=== PATIENT | female | born 1950 | race Caucasian/White ===

== ENCOUNTER 2017-05-10 11:38 | Observation (INO) | payer BC ==
[2017-05-10 13:13] LABS: Urine Bacteria Absent (Absent); Urine Bilirubin Negative (Negative); Urine Glucose Negative (Negative); Urine Nitrite Negative (Negative)
[2017-05-10 13:14] LABS: Hematocrit 36 % (35-47); Hemoglobin 12.2 g/dl (12.0-16.0); Mean Corpuscular HGB Conc 34 g/dl (31-36); Mean Corpuscular Hemoglobin 29 pg (27-31); Mean Corpuscular Volume 86 fL (80-97); Mean Platelet Volume 7 um3 (7.4-10.4); Red Blood Count 4.17 10^6/ul (4.0-5.4); Red Cell Distribution Width 14 % (10.5-15); White Blood Count 5.2 10^3/ul (3.5-10.8)
[2017-05-10 13:28] LABS: ALT 12 U/L (7-52); AST 14 U/L (13-39); Albumin 3.8 g/dL (3.2-5.2); Alkaline Phosphatase 77 U/L (34-104); Anion Gap 5 mmol/L (2-11); BUN/Creatinine Ratio 15.9 (8-20); Blood Urea Nitrogen 11 mg/dL (6-24); C Reactive Protein 2.58 mg/L (< 5.00); CO2 Carbon Dioxide 27 mmol/L (22-32); Calcium 9.2 mg/dL (8.6-10.3); Chloride 105 mmol/L (101-111); EGFR African American 109.1 (>60); EGFR Non-African American 84.9 (>60); Globulin 2.9 g/dL (2-4); Glucose 108 mg/dL (70-100); Potassium 3.2 mmol/L (3.5-5.0); Sodium 137 mmol/L (133-145); Total Protein 6.7 g/dL (6.4-8.9)
--- NOTE | 2017-05-10 13:42 | RAD ---
INDICATION: Headache. COMPARISON: Comparison is made with a prior MRI of the brain from November 26, 2014. TECHNIQUE: Contiguous axial sections of the brain were obtained from the skull base to the vertex without contrast. FINDINGS: The ventricles, cisterns and sulci are enlarged consistent with diffuse atrophy. There are small areas of decreased density in the subcortical and periventricular white matter suggestive of mild chronic small vessel ischemic changes. No other focal abnormality or mass effect is seen. There is no evidence for hemorrhage. No significant focal osseous abnormality is seen. The visualized portion of the paranasal sinuses and mastoid air cells appear clear. IMPRESSION: 1. NO EVIDENCE FOR ACUTE INTRACRANIAL ABNORMALITY. 2. ATROPHY AND FINDINGS SUGGESTIVE OF MILD CHRONIC SMALL VESSEL ISCHEMIC CHANGES.
[2017-05-10 14:17] LABS: Erythrocyte Sed Rate 29 mm/Hr (0-40)
[2017-05-10] MEDS ORDERED: Iohexol 350* (CONTRAST) 500 ML MDV IV ONE (15:55)
[2017-05-10] MEDS ORDERED: Potassium Chlor TAB* 20 MEQ TAB.ER PO ONE (16:43)
[2017-05-10] MEDS ORDERED: Acetaminophen TAB* 325 MG PO PRN (16:44)
[2017-05-10] MEDS ORDERED: oxyCODONE/Acetamin 5/325 MG* TAB PO PRN (16:44)
--- NOTE | 2017-05-10 16:51 | RAD ---
HISTORY: Severe headache, stroke like symptoms COMPARISONS: Head CT dated May 10, 2017 TECHNIQUE: Multiple contiguous axial CT scans were obtained of the head and neck After the administration of nonionic intravenous contrast timed to the systemic arterial phase of contrast enhancement. Coronal and sagittal multiplanar reformations are submitted for review. Multiple 3-D maximum intensity projection reconstructions are also submitted for review. FINDINGS: CTA NECK: AORTIC ARCH: There is a bovine configuration, with the left common carotid artery originating from the brachiocephalic trunk. There is no ostial or proximal stenosis of the cephalic great vessels. RIGHT VERTEBRAL ARTERY: The right vertebral artery is patent along its course, without stenosis. LEFT VERTEBRAL ARTERY: The left vertebral artery is patent along its course, without stenosis. DOMINANCE: The left vertebral artery is dominant. RIGHT COMMON CAROTID ARTERY: The right common carotid artery is patent. The right carotid bifurcation occurs at C3-C4 RIGHT INTERNAL CAROTID ARTERY: There is no right internal carotid artery stenosis by NASCET criteria. RIGHT EXTERNAL CAROTID ARTERY: The right external carotid artery is unremarkable. LEFT COMMON CAROTID ARTERY: The left common carotid artery is patent. The left carotid bifurcation occurs at C3-C4 LEFT INTERNAL CAROTID ARTERY: There is no left internal carotid artery stenosis by NASCET criteria. LEFT EXTERNAL CAROTID ARTERY: The left external carotid artery is unremarkable. VENOUS CIRCULATION: The venous system is unremarkable. SALIVARY GLANDS: The parotid glands, submandibular glands, sublingual glands are normal. NASAL CAVITY/NASOPHARYNX: The nasal cavity and nasopharynx are normal. ORAL CAVITY/OROPHARYNX: The oral cavity is obscured by streak artifact from dental amalgam. The visualized oral cavity and oropharynx are unremarkable. LARYNGEAL APPARATUS/HYPOPHARYNX: The laryngeal apparatus and hypopharynx are normal. UPPER AIRWAY/UPPER ESOPHAGUS: The visualized upper airway and esophagus are normal. LUNG APICES: The lung apices are clear. THYROID GLAND: The thyroid gland is normal. LYMPH NODES: There is no lymphadenopathy by size criteria. BONES AND SOFT TISSUES: Mild degenerative changes are noted CTA HEAD: INTRACRANIAL CIRCULATION: There is no aneurysm, vascular malformation, occlusion, or stenosis of the visualized intracranial circulation. The anterior communicating artery complex is clear. Bilateral posterior communicating arteries are identified. VENOUS CIRCULATION: The venous system is unremarkable. PERFUSION: There is no obvious parenchymal perfusion deficit. HEMORRHAGE/INFARCT: There is no hemorrhage or acute infarct. MASSES/SHIFT: There is no mass or shift. EXTRA-AXIAL SPACES: There are no extra-axial fluid collections. SULCI AND VENTRICLES: The sulci and ventricles are normal in size and position for the patient's stated age. CEREBRUM: There is mild, patchy hypoattenuation of the periventricular and subcortical white matter. BRAINSTEM: There are no focal parenchymal abnormalities. CEREBELLUM: There are no focal parenchymal abnormalities. PARANASAL SINUSES: There are mucus retention cysts of the maxillary sinuses bilaterally ORBITS: The orbits are unremarkable. BONES AND SOFT TISSUE: No bone or soft tissue abnormalities are noted. OTHER: There is no abnormal enhancement. IMPRESSION: 1. NO INTERNAL CAROTID ARTERY STENOSIS BY NASCET CRITERIA. 2. NO ANEURYSM, VASCULAR MALFORMATION, OCCLUSION, OR STENOSIS OF THE VISUALIZED INTRACRANIAL CIRCULATION.. CPT II Codes: 3100F
--- NOTE | 2017-05-10 17:05 | ED ---
Hemal Shankar Angela, scribed for Albin Marte MD on 05/10/17 at 1216 . Headache - HPI Summary HPI Summary: This pt is a 66 y/o female presenting to [facility] c/o intermittent left catholic pain x3 days, worse yesterday in the afternoon. Pt reports that her catholic pain is sharp and lasts a few minutes, it eases off and is a dull ache, sometimes subsiding completely. Her worst catholic pain was yesterday and lasted 40 minutes. Pt notes last night her left arm felt numb and achy, today it continues to feel "funny." She tried to roll over and find a more comfortable position to sleep but today her arm is still feeling numb. Pt also reports left eye discomfort, described as watery, weak, and wanting to close. She states that this headache is different from any other previous headaches and migraines. Pt denies blurry vision, visual changes, lower extremity weakness or numbness, nausea, vomiting, dizziness, chest pain, SOB, fever, chills. She notes a PMHx of fibromyalgia for which she takes Lyrica and has been helping her , although she states having breakthroughs and having muscle ache again. Pt reports a PMHx of HTN (controlled with Lisinopril), depression (Cymbalta and Paxil), and migraines (controlled by ibuprofen). She states taking quite a bit of ibuprofen for the pain. - History Of Current Complaint Chief Complaint: EDHeadache Stated Complaint: LEFT BUDDHISM PAIN, LEFT ARM PAIN Hx Obtained From: Patient Onset/Duration: Started days ago Location of Headache: Temporal - Left catholic Aggravating Factor: Nothing Allevating Factors: Nothing Associated Signs And Symptoms: Other (Noted In Comments) - Left arm numbness, left eye watery and weak - Allergies/Home Medications Allergies/Adverse Reactions: Allergies Allergy/AdvReac Type Severity Reaction Status Date / Time Ciprofloxacin [From Cipro IV] Allergy Mild Itching Verified 05/07/13 09:40 Home Medications: Home Medications DULoxetine DR MEADOWS* [Cymbalta CAP*] 30 mg PO DAILY 05/10/17 [History Confirmed ] Ezetimibe TAB* [Zetia TAB*] 10 mg PO DAILY 05/10/17 [History Confirmed 05/10/17] Famotidine TAB 40 MG(NF) [Pepcid TAB 40 MG(NF)] 40 mg PO DAILY 05/10/17 [ History Confirmed 05/10/17] Folic Acid-Vitamin B6-Vitamin [B Complex/Folic Acid] 1 tab PO DAILY 05/10/17 [ History Confirmed 05/10/17] Lisinopril/HCTZ 10/12.5(NF) [Zestoretic 10/12.5(NF)] 1 tab PO DAILY 05/10/17 [ History Confirmed 05/10/17] Paroxetine HCl [Paroxetine HCl ER] 25 mg PO DAILY 05/10/17 [History Confirmed ] Potassium Chlor TAB* [Klor Con ER TAB*] 20 meq PO DAILY 05/10/17 [History Confirmed 05/10/17] Pregabalin CAP(*) [Lyrica CAP(*)] 75 mg PO BID 05/10/17 [History Confirmed 05/10] PMH/Surg Hx/FS Hx/Imm Hx Endocrine/Hematology History: Denies: Hx Diabetes, Hx Sickle Cell Disease Cardiovascular History: Reports: Hx Hypercholesterolemia, Hx Hypertension - CONTROLLED W/ MEDS, Other Cardiovascular Problems/Disorders - PT REPORTS HAS HAD PROBLEMS WITH ARRYTHMIAS IN PAST NOT AT CURRENT TIME Denies: Hx Pacemaker/ICD Respiratory History: Denies: Hx Asthma, Other Respiratory Problems/Disorders GI History: Reports: Other GI Disorders - see above History: Denies: Hx Dialysis, Hx Renal Disease, Other Problems/Disorders Musculoskeletal History: Reports: Other Musculoskeletal History - fibromyalgia Sensory History: Reports: Hx Cataracts, Hx Contacts or Glasses - GLASSES Denies: Hx Hearing Aid Opthamlomology History: Reports: Hx Cataracts, Hx Contacts or Glasses - GLASSES Neurological History: Reports: Hx Migraine - OCCASSIONALLY Psychiatric History: Reports: Hx Depression Denies: Hx Panic Disorder - Cancer History Cancer Type, Location and Year: BREAST Hx Chemotherapy: Yes - 2009 Hx Radiation Therapy: No - Surgical History Surgery Procedure, Year, and Place: hysterectomy,exploritory with appendectomy, ruptured ovary,bilat mastectomy 2007 /2008left lymph nodes so IV in right . reconstructive breast surgery tram flap. CATARCT, TONSILECTOMY Hx Anesthesia Reactions: No Infectious Disease History: Denies: Traveled Outside the [place] in Last 30 Days - Social History Alcohol Use: None Substance Use Type: Reports: None Review of Systems Negative: Fever, Chills Positive: Other - Watery and weak left eye. Negative: Blurred Vision Negative: Chest Pain Negative: Shortness Of Breath Negative: Vomiting, Nausea Positive: Headache - left catholic pain, Numbness - Left arm All Other Systems Reviewed And Are Negative: Yes Physical Exam Triage Information Reviewed: Yes Vital Signs On Initial Exam: Initial Vitals Temp Pulse Resp BP Pulse Ox 97.9 F 81 20 156/84 99 05/10/17 11:40 05/10/17 11:40 05/10/17 11:40 05/10/17 11:40 05/10/17 11:40 Vital Signs Reviewed: Yes Appearance: Positive: Well-Appearing Skin: Positive: Warm, Skin Color Reflects Adequate Perfusion, Dry Head/Face: Positive: Normal Head/Face Inspection, Other - Nontender in catholic. No trigger points. Eyes: Positive: Normal Neck: Positive: Supple, Nontender Respiratory/Lung Sounds: Positive: Clear to Auscultation, Breath Sounds Present Cardiovascular: Positive: RRR Musculoskeletal: Positive: Normal Neurological: Positive: Normal Psychiatric: Positive: Normal, Affect/Mood Appropriate - [place] Coma Scale [place] Coma Scale Comments: 15 Diagnostics - Vital Signs Vital Signs Temp Pulse Resp BP Pulse Ox 05/10/17 11:40 97.9 F 81 20 156/84 99 - Laboratory Lab Results: Lab Results 05/10/17 05/10/17 05/10/17 Range/Units 12:35 13:04 13:04 WBC 5.2 (3.5-10.8) 10^3/ul RBC 4.17 (4.0-5.4) 10^6/ul Hgb 12.2 (12.0-16.0) g/dl Hct 36 (35-47) % MCV 86 (80-97) fL MCH 29 (27-31) pg MCHC 34 (31-36) g/dl RDW 14 (10.5-15) % Plt Count 290 (150-450) 10^3/ul MPV 7 L (7.4-10.4) um3 Neut % (Auto) 53.3 (38-83) % Lymph % (Auto) 35.8 (25-47) % [place] % (Auto) 6.9 (1-9) % Eos % (Auto) 2.8 (0-6) % Baso % (Auto) 1.2 (0-2) % Absolute Neuts (auto) 2.8 (1.5-7.7) 10^3/ul Absolute Lymphs (auto) 1.9 (1.0-4.8) 10^3/ul Absolute Monos (auto) 0.4 (0-0.8) 10^3/ul Absolute Eos (auto) 0.1 (0-0.6) 10^3/ul Absolute Basos (auto) 0.1 (0-0.2) 10^3/ul Absolute Nucleated RBC 0.01 10^3/ul Nucleated RBC % 0.1 ESR 29 (0-40) mm/Hr INR (Anticoag Therapy) (0.89-1.11) Sodium 137 (133-145) mmol/L Potassium 3.2 L (3.5-5.0) mmol/L Chloride 105 (101-111) mmol/L Carbon Dioxide 27 (22-32) mmol/L Anion Gap 5 (2-11) mmol/L BUN 11 (6-24) mg/dL Creatinine 0.69 (0.51-0.95) mg/dL Est GFR ( Amer) 109.1 (>60) Est GFR (Non-Af Amer) 84.9 (>60) BUN/Creatinine Ratio 15.9 (8-20) Glucose 108 H (70-100) mg/dL Lactic Acid (0.5-2.0) mmol/L Calcium 9.2 (8.6-10.3) mg/dL Total Bilirubin 0.70 (0.2-1.0) mg/dL AST 14 (13-39) U/L ALT 12 (7-52) U/L Alkaline Phosphatase 77 (34-104) U/L C-Reactive Protein 2.58 (< 5.00) mg/L Total Protein 6.7 (6.4-8.9) g/dL Albumin 3.8 (3.2-5.2) g/dL Globulin 2.9 (2-4) g/dL Albumin/Globulin Ratio 1.3 (1-3) Triglycerides Pending Cholesterol Pending LDL Cholesterol Pending HDL Cholesterol Pending Vitamin B12 Pending Folate Pending Urine Color Straw Urine Appearance Clear Urine pH 6.0 (5-9) Ur Specific [place] 1.004 L (1.010-1.030) Urine Protein Negative (Negative) Urine Ketones Negative (Negative) Urine Blood Negative (Negative) Urine Nitrate Negative (Negative) Urine Bilirubin Negative (Negative) Urine Urobilinogen Negative (Negative) Ur Leukocyte Esterase 1+ H (Negative) Urine WBC (Auto) Trace(0-5/hpf) (Absent) Urine RBC (Auto) Trace(0-2/hpf) (Absent) Ur Squamous Epith Cells Present H (Absent) Urine Bacteria Absent (Absent) Urine Glucose Negative (Negative) 05/10/17 05/10/17 Range/Units 13:04 13:04 WBC (3.5-10.8) 10^3/ul RBC (4.0-5.4) 10^6/ul Hgb (12.0-16.0) g/dl Hct (35-47) % MCV (80-97) fL MCH (27-31) pg MCHC (31-36) g/dl RDW (10.5-15) % Plt Count (150-450) 10^3/ul MPV (7.4-10.4) um3 Neut % (Auto) (38-83) % Lymph % (Auto) (25-47) % [place] % (Auto) (1-9) % Eos % (Auto) (0-6) % Baso % (Auto) (0-2) % Absolute Neuts (auto) (1.5-7.7) 10^3/ul Absolute Lymphs (auto) (1.0-4.8) 10^3/ul Absolute Monos (auto) (0-0.8) 10^3/ul Absolute Eos (auto) (0-0.6) 10^3/ul Absolute Basos (auto) (0-0.2) 10^3/ul Absolute Nucleated RBC 10^3/ul Nucleated RBC % ESR (0-40) mm/Hr INR (Anticoag Therapy) 0.86 L (0.89-1.11) Sodium (133-145) mmol/L Potassium (3.5-5.0) mmol/L Chloride (101-111) mmol/L Carbon Dioxide (22-32) mmol/L Anion Gap (2-11) mmol/L BUN (6-24) mg/dL Creatinine (0.51-0.95) mg/dL Est GFR ( Amer) (>60) Est GFR (Non-Af Amer) (>60) BUN/Creatinine Ratio (8-20) Glucose (70-100) mg/dL Lactic Acid 0.9 (0.5-2.0) mmol/L Calcium (8.6-10.3) mg/dL Total Bilirubin (0.2-1.0) mg/dL AST (13-39) U/L ALT (7-52) U/L Alkaline Phosphatase (34-104) U/L C-Reactive Protein (< 5.00) mg/L Total Protein (6.4-8.9) g/dL Albumin (3.2-5.2) g/dL Globulin (2-4) g/dL Albumin/Globulin Ratio (1-3) Triglycerides Cholesterol LDL Cholesterol HDL Cholesterol Vitamin B12 Folate Urine Color Urine Appearance Urine pH (5-9) Ur Specific [place] (1.010-1.030) Urine Protein (Negative) Urine Ketones (Negative) Urine Blood (Negative) Urine Nitrate (Negative) Urine Bilirubin (Negative) Urine Urobilinogen (Negative) Ur Leukocyte Esterase (Negative) Urine WBC (Auto) (Absent) Urine RBC (Auto) (Absent) Ur Squamous Epith Cells (Absent) Urine Bacteria (Absent) Urine Glucose (Negative) Result Diagrams: 05/10/17 13:04 05/10/17 13:04 Lab Statement: Any lab studies that have been ordered have been reviewed, and results considered in the medical decision making process. - CT Brain CT CT Interpretation: Positive (See Comments) - IMPRESSION: 1. No evidence for acute intracranial abnormality. 2. Atrophy and findings suggestive of mild chronic small vessel ischemic changes. ED physician has reviewed this radiology report and agrees. CT Interpretation Completed By: Radiologist - EKG 12:45 Cardiac Rate: NL EKG Rhythm: Sinus Rhythm Headache Course/Dx - Course Course Of Treatment: Ms. Thao presented with a very atypical SARAVIA on and off for two days and some odd sensory symptoms in her left arm for about 15 hours. Her initial W/U was negative and she was seen by Dr. Estrada. She will be admitted to a monitored bed by the hospitalists for further W/U. - Diagnoses Provider Diagnoses: CVA (cerebral vascular accident) - Physician Notifications Discussed Care Of Patient With: Loren Estrada Time Discussed With Above Provider: 14:30 Instructed by Provider To: Other - Discussed the pt's case with Dr. Estrada. He will come see the pt in the ED. 15:25 - Spoke with hospitalist Dr. Bolton, who will admit the pt. 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 Hand: Both Correctly Best Gaze (Only Horizontal Eye Movement): Normal Visual Field Testing: No Visual Loss Facial Paresis-Pt to Smile & Close Eyes or Grimace Symmetry: Normal/Symmetrical Motor Function - Right Arm: No Drift-Holds 10 Seconds Motor Function - Left Arm: No Drift-Holds 10 Seconds Motor Function - Right Leg: No Drift-Holds 10 Seconds Motor Function - Left Leg: No Drift-Holds 10 Seconds Limb Ataxia-Must be out of Proportion to Weakness Present: Absent Sensory (Use Pinprick to Test Arms/Legs/Trunk/Face): Normal Best Language (Describe Picture, Name Items): No Aphasia Dysarthria (Read Several Words): Normal Extinction and Inattention: No Abnormality Total Score: 0 The documentation as recorded by the Hemal mendes Angela accurately reflects the service I personally performed and the decisions made by me, Albin Marte MD.
[2017-05-10 17:16] LABS: Cholesterol 198 mg/dL; HDL Cholesterol 58.5 mg/dL; LDL Cholesterol 110 mg/dL; Triglycerides 149 mg/dL
[2017-05-10] MEDS: Hydrochlorothiazide TAB* 25 MG PO SCH (17:25)
[2017-05-10] MEDS: Aspirin EC Low Dose* 81 MG TAB.EC PO SCH (17:25)
[2017-05-10 18:56] LABS: Vitamin B12 > 1450 pg/mL (180-914)
[2017-05-10] MEDS ORDERED: diPHENhydraMINE PO* 50 MG PO PRN (19:37)
--- NOTE | 2017-05-10 21:09 | CONS ---
CONSULTATION REPORT: DATE OF CONSULTATION: 05/10/17 LOCATION: Currently, in ED. REASON FOR CONSULTATION: Headache and left arm weakness/pain. HISTORY OF PRESENT ILLNESS: Ms. Thao is a very nice 66-year-old female who has a history of breast cancer status post bilateral mastectomy with reconstruction, in remission for 8 years, history of hypertension, history of hyperlipidemia, history of fibromyalgia on medication, depression, and also history of migraine headache. She has not had a migraine headache in around 10 years. She presents to the hospital today with a 2-day history of headaches over the right eye that are sharp, stabbing in nature. They come on suddenly. They last for 1 to 2 minutes and then they resolve. They are not associated with any photophobia or phonophobia, nausea or vomiting but she does state that her eye tears at times. There is no rash associated with them, no nasal discharge associated with them. Until today, she had no other neurologic symptoms with them, but they were rated 5/10. She has not taken any medications for them as they improved quickly. Today, she woke from sleep with a headache similar in nature. Also, she noted her left arm was "aching and felt like it was asleep." It involved the entire arm and it has not resolved, it has persisted. She has had off and on headache all day long and similar in nature. She denies any other weakness, numbness, tingling. She denies any vision changes other than some blurry vision. She denies any speech difficulties or swallowing difficulties. She has never had these symptoms before and she states that these headaches are different than her migraine headaches. They are, however, not the worst headache of her life. She has not had any new medications recently. She denies any head trauma, loss of consciousness. No history of seizures. She denies any insect bites. She did get chills 1 night, but no fevers. No redness over her voodoo. No pain with pressure over her voodoo. No vision loss or scotoma. There is no family history of aneurysms. PAST MEDICAL HISTORY: As noted above. PAST SURGICAL HISTORY: Appendix, tonsillectomy, bilateral mastectomy. MEDICATIONS: Her home medications include: 1. Ambien 5 daily. 2. Potassium chloride 20 mEq daily. 3. Paroxetine 25 mg daily. 4. Multivitamin. 5. Lisinopril/hydrochlorothiazide 06/28.5 one daily. 6. Gabapentin 600 mg p.o. b.i.d. 7. Folic acid 1 daily. 8. Zetia 10 mg daily. 9. Duloxetine 30 mg p.o. t.i.d. 10. B complex with folic acid 1 daily. ALLERGIES: CIPROFLOXACIN. SOCIAL HISTORY: No tobacco use. She stopped drinking alcohol several years ago , but was never a heavy drinker. 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 She is . REVIEW OF SYSTEMS: A 14 organ systems as noted above, otherwise negative. PHYSICAL EXAMINATION: Vital Signs: Blood pressure is in the 140s/80s, pulse has been normal in the 70s to 80s, respiratory rate is 12, O2 sats have been normal 95% to 100%. In general, she is a well-nourished, well-developed, pleasant female, lying in the hospital bed. Her is at the bedside. She is well dressed, well groomed. HEENT: She is normocephalic, atraumatic. Sclerae are anicteric. Mucous membranes are moist. Oropharynx is clear. Nares are patent. There is no erythema of the eyes. No tearing in the eyes. No pain with voodoo palpation bilaterally. No cords or enlarged vessels in the temples. Her oropharynx is clear. There are no lesions. Neck is supple. No thyromegaly. No carotid bruits. No meningismus. Chest: Clear to auscultation bilaterally. Cardiovascular: Regular rate and rhythm. Abdomen is soft, nontender. Extremities: No clubbing, cyanosis, or edema. Her skin is warm and dry without lesions. On neurologic exam, she is awake, alert, oriented x3. Her speech is fluent. There is no dysarthria. Repetition is intact. Recall of recent and remote events is intact. Vocabulary is intact. Her mood is concerned, affect a bit congruent. Cranial nerves II through XII; pupils are equally round and reactive to light and accommodation. Visual العلي are full. Extraocular muscles are intact. She has some central and bilateral blurry vision but nonspecific and not located in 1 eye. She has no diplopia. No nystagmus. Her facial sensation is intact. Her face is symmetric. Hearing is intact. Her palate elevates symmetrically. Tongue is midline. Shoulder shrug and sternocleidomastoid are both normal. Motor exam, she spontaneously moves all extremities antigravity. She is 5/5 throughout. Tone and bulk are both normal. DTRs are 2+ and symmetric in the upper and lower extremities at the biceps, brachioradialis, and triceps; at the patella 2+ bilaterally, at the ankles 1+ bilaterally. Downgoing Babinski's. Sensation is intact to light touch and pinprick. Vibration and proprioception except for an area over her right colvin which has decreased pinprick. She denies any loss of sensation in her arms bilaterally. She does note an aching pain in her left arm proximally and distally that is circumferential in nature. She has good pulses in her extremities and there is no discoloration of her arms. The pain is persistent but is not worse with palpation. Her [id number] and rapid alternating movements are intact without tremor. No pass pointing. No dysdiadochokinesia or dysmetria. Heel-to- colvin is normal. Gait is normal stand and stride. Romberg is negative. LABORATORY DATA/DIAGNOSTIC STUDIES: Lab work includes a CBC with diff that is essentially normal. INR 0.86. A complete metabolic profile reveals a potassium of 3.2, glucose of 108. Direct bili of 1.2, slightly elevated. Vitamin B12 on 06/28/16 was 1450. TSH on 08/30/15 was 1.03. Her last LDL cholesterol on 06/28/16 was 130. C-reactive protein today was 2.58. She had a CT of the head today, films reviewed showed no evidence of acute intracranial abnormality, atrophy and findings suggestive of mild chronic small vessel ischemic changes. ASSESSMENT AND PLAN: Ms. Thao is a 66-year-old female who has a history of migraine headaches, none in the last 10 years; history of breast cancer, in remission for 8 years, status post bilateral mastectomy, status post reconstruction. She also has a history of hypertension, hyperlipidemia, fibromyalgia. She presents to the hospital with 2-day history of sharp, stabbing headaches in the left voodoo and today woke up with the same headache and some numbness/pain in her left arm, which has persisted, CT scan negative. At this point, I am unclear as to the etiology of her symptoms. The headaches do not appear to be vasculitic in nature. Temporal arteritis would be in the differential, although she has no palpation pain and there are no cords there and her CRP is normal. We will check an ESR as well. It is unclear whether she has some autonomic features to her headaches. She did have some tearing, but currently she has no redness, no nasal discharge, no rash or erythema in her eye. My suspicion for underlying autonomic headache is low. Something like would be in the differential but unlikely. This is also not typical of her past migraine headaches, although migraines are in the differential. These are short lived and would be less likely. Aneurysm is in the differential as well but the description of her events and the episodic nature would be unusual. Given the persistent left arm finding, stroke is in the differential, although the pain is atypical. My plan is that she should be admitted for a stroke workup, also to monitor her headaches, MRI of the brain, CT angiogram of the head and neck, echocardiogram, lab work. I would not be too aggressive with her blood pressures at this point but until we have evidence of a stroke, I would not allow extreme permissive hypertension. I am going to start her on a baby aspirin for now. I am going to get an MRI of her C - spine as well to look for any evidence of nerve compression, which could cause left arm pain, although the symptoms are not in any particular radicular pattern. Vascular causes such as a deep venous thrombosis would be unlikely given the fact that she has no swelling. Her pulses are good. There is no tenderness in her arm. I would treat her headaches with NSAIDs as necessary and continue her other medications. I will continue to follow her closely and make further recommendations as necessary. Thank you for the opportunity to participate in her care. [id number]/[facility] #: [id number] ARTEMIO
--- NOTE | 2017-05-10 21:26 | RAD ---
HISTORY: Left arm pain, stroke like symptoms COMPARISONS: October 11, 2012 TECHNIQUE: The following sequences were obtained of the cervical spine: Sagittal T1- and T2-weighted images, sagittal STIR images, axial T2 and gradient echo images. FINDINGS: BRAIN AND SPINAL CORD: The visualized spinal cord is normal in caliber, position, and signal intensity. The visualized portion of the brain is unremarkable. The cerebellar tonsils are normal in position. ALIGNMENT: There is straightening of the normal cervical lordosis. The alignment is otherwise normal. VERTEBRAL BODIES: There is hemangioma of C7. There is mild anterolateral marginal osteophyte formation. There are Modic 2 reactive endplate changes at C4-C5. JOINTS: There is uncovertebral and facet hypertrophic change MUSCULATURE: There is mild fatty infiltration. INTERVERTEBRAL DISCS: There is diffuse loss of intervertebral disc height and T2 signal throughout the spine. AXIAL IMAGES: C2-C3: There is no disc herniation, spinal stenosis, or neuroforaminal narrowing. C3-C4: There is bilateral uncovertebral and facet hypertrophy. There is severe bilateral neural foraminal narrowing. There is no significant central canal stenosis. C4-C5: There is broad-based disc osteophyte complex. There is bilateral uncovertebral and facet hypertrophy. There is severe bilateral neural foraminal narrowing. There is mild narrowing of the central canal. C5-C6: There is bilateral uncovertebral and facet hypertrophy. There is severe bilateral neural foraminal narrowing. There is mild narrowing of the central canal. C6-C7: There is bilateral uncovertebral hypertrophy. There is mild bilateral neural foraminal narrowing. There is no significant central canal stenosis. C7-T1: There is no disc herniation, spinal stenosis, or neuroforaminal narrowing. SOFT TISSUES: The visualized soft tissues of the neck are unremarkable. OTHER: There are mucus retention cysts of the maxillary sinuses bilaterally. There is an air-fluid level within the sphenoid sinus. IMPRESSION: 1. DEGENERATIVE DISC DISEASE AND OSTEOARTHRITIS. 2. THERE IS MILD NARROWING OF THE CENTRAL CANAL AT C4-C5 AND C5-C6. 3. THERE IS MULTILEVEL NEURAL FORAMINAL NARROWING DESCRIBED ABOVE.
--- NOTE | 2017-05-10 21:27 | RAD ---
HISTORY: Stroke like symptoms, left temporal pain and severe headache, left arm pain COMPARISONS: None TECHNIQUE: The following sequences were obtained of the head: Sagittal T1-weighted images, axial T2-weighted images, axial FLAIR images, axial susceptibility weighted images, axial T1-weighted images. Additionally, axial diffusion-weighted images were obtained with calculated apparent diffusion coefficients. FINDINGS: HEMORRHAGE/INFARCT: There is no hemorrhage or acute infarct. MASSES/SHIFT: There is no mass or shift. EXTRA-AXIAL SPACES/MENINGES: There are no extra-axial fluid collections. SULCI AND VENTRICLES: The sulci and ventricles are normal in size and position for the patient's stated age. CEREBRUM: There are multiple scattered small foci of elevated T2/FLAIR signal within the periventricular and subcortical white matter. BRAINSTEM: There are no focal parenchymal abnormalities. CEREBELLUM: There are no focal parenchymal abnormalities. The cerebellar tonsils are normal in size and position. SELLA: The sella is normal. PINEAL: The pineal region is clear. CP ANGLE/TEMPORAL BONES: The labyrinthine structures are grossly normal. VESSELS: Normal flow-voids are noted within the visualized vertebral vasculature. DIFFUSION ABNORMALITIES: There are no diffusion abnormalities. PARANASAL SINUSES/MASTOIDS: There are mucus retention cysts of the maxillary sinuses bilaterally. There is an air-fluid level within the sphenoid sinus. ORBITS: The orbits are unremarkable. BONES AND SOFT TISSUE: No bone or soft tissue abnormalities are noted. OTHER: None IMPRESSION: 1. NO RESTRICTED DIFFUSION TO SUGGEST ACUTE INFARCT. 2. THERE ARE MULTIPLE FOCI OF ELEVATED T2/FLAIR SIGNAL WITHIN THE PERIVENTRICULAR AND SUBCORTICAL WHITE MATTER. WHILE THESE FINDINGS ARE NONSPECIFIC, THEY CAN BE SEEN IN ASSOCIATION WITH MIGRAINE HEADACHE, THE SEQUELA OF PREVIOUS INFECTION OR INFLAMMATION, AND CHRONIC SMALL VESSEL ISCHEMIA. DEMYELINATING DISEASE IS ALSO WITHIN THE DIFFERENTIAL, BUT IS CONSIDERED LESS LIKELY IN THE ABSENCE OF THE APPROPRIATE CLINICAL PRESENTATION. 3. MODERATE SINUS MUCOSAL INFLAMMATORY DISEASE, WITH AN AIR-FLUID LEVEL IN THE SPHENOID SINUS. IN THE CORRECT CLINICAL SETTING, THIS MAY REPRESENT ACUTE SINUSITIS
--- NOTE | 2017-05-10 22:16 | HP ---
CC: Dr. Velasquez; Dr. Estrada * HISTORY AND PHYSICAL: DATE OF ADMISSION: 05/10/17 PRIMARY CARE PROVIDER: Dr. Velasquez. CHIEF COMPLAINT: Headache. HISTORY OF PRESENT ILLNESS: Sanna Thao is a 66-year-old female with history of breast cancer, status post bilateral mastectomy, now in remission, who presents to the hospital with history of 2 days of left temporal headache. The patient describes the headache as left gnosticist shooting pain that is associated with pounding in the left side of the gnosticist and associated also with tearing in the left eye. She has no visual disturbances. The pain lasts several minutes and it goes away spontaneously afterwards. She has approximately 3 or 4 episodes a day for the past 2 days, one of them occurred at night. Last night she also noted that she had left arm numbness. She states that her numbness "woke her up from sleep." She also denies paresthesias but complaining of her left arm feeling "sore" to the point that she had problems typing today at work. When she came to the hospital she had another one of headache episodes that resolved. She was evaluated by Dr. Estrada from Neurology, who recommended overnight observation for possibility of stroke. PAST MEDICAL HISTORY: 1. History of breast cancer, status post bilateral mastectomies and chemotherapy. 2. History of tinnitus. 3. History of hypertension. 4. History of vitamin B deficiency. 5. Fibromyalgia. 6. Hypertension. 7. Appendectomy. 8. Hysterectomy. 9. Tonsillectomy. 10. History of back pain that resolved with a possibility of L5 root compression that resolved. HOME MEDICATIONS: Include: 1. Vitamin B6 and folic acid complex daily. 2. Multivitamin 1 tablet daily. 3. Lisinopril/hydrochlorothiazide 10/12.5 mg daily. 4. Lyrica 75 mg b.i.d. 5. Pepcid 40 mg daily. 6. Zetia 10 mg daily. 7. Potassium chloride 20 mEq daily. 8. Paroxetine 25 [address] 9[address] Dul[address] 30 mg daily. ALLERGIES: Include CIPROFLOXACIN. FAMILY HISTORY: Positive for father who developed colon cancer at the age of 70 and at the age of 76 of complications of Parkinson's. Mother at the age of 72 secondary to Alzheimer's. SOCIAL HISTORY: The patient denies any tobacco or drug use. She drinks alcohol occasionally. Her surrogate decision maker is her Bean. 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 REVIEW OF SYSTEMS: Please see history of present illness. 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 The remaining 14 systems were reviewed with the patient and were otherwise negative. PHYSICAL EXAMINATION GENERAL: The patient is a pleasant 66-year-old female, who is in no acute distress. Alert, awake, and oriented x3. VITAL SIGNS: Blood pressure 148/76, heart rate 76 and regular, respiratory rate 20, oxygen saturation 96% on room air, temperature of 98.4. HEENT: Head atraumatic, normocephalic. Eyes: Pupils equal, and reactive to light and accommodation. Oropharynx clear. Mucosa moist. NECK: Supple. No JVD. No bruits bilaterally. RESPIRATORY: Clear to auscultation bilaterally. CARDIOVASCULAR: Regular rate and rhythm. No murmur. ABDOMEN: Soft, nontender. Bowel sounds present in all 4 quadrants. EXTREMITIES: There is no edema. Pulses are +2 bilaterally. There is no clubbing or cyanosis. NEUROLOGIC: Speech clear. Cranial nerves II through XII are grossly intact. Motor strength is 5/5 bilaterally. Sensation grossly intact. [id number], no dysmetria bilaterally. Gait is normal. SKIN: On evaluation of the skin, no ecchymotic areas or rashes noted. PSYCHIATRIC: Pleasant, cooperative with evaluation, with no evidence of anxiety or depression. LABORATORY DATA/DIAGNOSTIC STUDIES: Laboratory data showed sodium of 137, potassium 3.2, chloride 105, carbon dioxide 27, BUN 11, creatinine 0.69. Liver function tests were unremarkable. Troponin is pending at the time of dictation. CBC: White blood cell count of 5.2, hemoglobin 12.2, hematocrit 36, and platelets of 190,000. ESR is 29. INR is 0.86. Urinalysis showed low specific gravity of 1.004 and trace leukocyte esterase. CT angiogram of the head showed impression: "No internal carotid artery stenosis. No aneurysm, vascular malformation, occlusion or stenosis of the visualized endocrine circulation." Patient's EKG showed normal sinus rhythm with a heart rate of 69 beats per minute with no ST changes. Brain CT, impression: "No evidence for acute intracranial abnormality. Atrophy and findings suggestive of mild chronic small vessel ischemic changes." ASSESSMENT AND PLAN: Ms. Thao is a 66-year-old female with history of hypertension and breast cancer, who presented to the hospital with headache and left arm heaviness. At this point, I do not have her troponin. She is going to be placed on overnight observation. If her troponin is negative, further workup for headache will include consultation with Neurology that is currently pending. Patient is also going to be ordered an MRI of the brain as well as transthoracic echocardiogram with bubble study to evaluate for possibility of transient ischemic attack. Patient's inflammatory markers were checked and that included ESR which was 29. Some of the other markers including DELFIN and C- reactive protein are still pending at the time of dictation. Patient is going to be placed on neuro checks and continued on aspirin. 1. In regards to the patient's hypertension, the patient is going to be continued on hydrochlorothiazide and lisinopril. 2. Fasting lipid profile is going to be obtained to evaluate for dyslipidemia. 3. For her history of fibromyalgia and depression, Cymbalta and paroxetine is going to be continued. 4. For DVT prophylaxis, the patient is going to be placed on heparin subcutaneously. 5. In regards to the patient's code status, patient is full code and her surrogate is her . TIME SPENT: Approximately 68 minutes was spent on admission of this patient, more than half of the time was spent [id number] with the patient during the interview, physical exam. [id number]/[facility] #: [id number] ARTEMIO
[2017-05-10] MEDS: Pregabalin CAP(*) 25 MG PO SCH (22:58)
[2017-05-10] MEDS: Heparin VIAL(*) 5000 UNITS/ML VIAL (FIVE THOUSAND) SUBCUT SCH (22:59)
[2017-05-10] MEDS ORDERED: PARoxetine HCL TAB* 10 MG PO SCH (23:00)
[2017-05-10] MEDS ORDERED: DULoxetine DR CAP* 60 MG CAP.DR PO SCH (23:00)
[2017-05-11] MEDS: Heparin VIAL(*) 5000 UNITS/ML VIAL (FIVE THOUSAND) SUBCUT SCH (05:29)
[2017-05-11] MEDS: Hydrochlorothiazide TAB* 25 MG PO SCH (07:40)
[2017-05-11] MEDS: Pregabalin CAP(*) 25 MG PO SCH (07:40)
[2017-05-11] MEDS: Aspirin EC Low Dose* 81 MG TAB.EC PO SCH (07:41)
[2017-05-11] MEDS ORDERED: Potassium Chlor TAB* 20 MEQ TAB.ER PO SCH (09:00)
[2017-05-11] MEDS ORDERED: DULoxetine DR CAP* 30 MG CAP.DR PO SCH (09:00)
[2017-05-11] MEDS ORDERED: Lisinopril TAB* 10 MG PO SCH (09:00)
[2017-05-11] MEDS ORDERED: Famotidine TAB* 20 MG PO SCH (09:00)
[2017-05-11] MEDS ORDERED: Ezetimibe TAB* 10 MG PO SCH (09:00)
--- NOTE | 2017-05-11 10:41 | PN ---
DATE OF PROGRESS NOTE: 05/11/2017. She is currently in room #446, bed 1. SUBJECTIVE: The patient has had no new symptoms overnight. Her left arm pain has resolved. She co ntinues to have occasional headaches on the left side, but they are improved. She has had no new sy mptoms and feels better overall OBJECTIVE: Temperature 98.1, pulse 75, respiratory rate 16, pulse ox 97 percent, blood pressure 143 /69. Her blood pressures have ranged from the systolics in the low 140s, diastolics in the 70s in t he last six hours. In general, she is a well- nourished, well-developed female in no acute distress . She is lying in her hospital bed. She is pleasant. HEENT: She is normocephalic, atraumatic. S clerae anicteric. Mucus membranes are moist. No yazidi pain. No cords. Neck: Supple. Chest: Cl ear to auscultation bilaterally. Cardiovascular: Regular rate and rhythm. Abdomen: Nontender. E xtremities: No edema. Neurologic: Awake, alert and oriented times three. Speech is fluent. Ther e is no dysarthria. Repetition is intact. Recall of recent or remote events is intact. Cranial ne rves II through XII: Visual العلي are full. Pupils are equal, round and reactive to light. Extrao cular muscles are intact. Face is symmetric. Facial sensation is intact. Tongue is midline. Palat e elevates symmetrically. She is spontaneously moving all extremities. Antigravity 5/5 throughout. No drift. Sensation is intact in light touch and pinprick throughout. [id number]-[id number] and rapid a lternating movements are intact without tremor. STUDIES PERFORMED: 1. Brain MRI showed no restricted diffusion. Multiple foci of periventricular and subcortical whit e matter. Moderate sinus mucosal inflammatory disease. No acute changes. 2. CTA of the brain showed no internal carotid artery stenosis. No aneurysm, vascular malformation , occlusion or stenosis noted. 3. Cervical spine MRI showed multilevel neural foraminal narrowing severe in nature at C3-4, C4-5, and C5-6. 4. Echocardiogram is pending. ASSESSMENT AND PLAN: Ms. Thao is a 66-year-old female with a history of migraines headaches in the past, presents to the hospital with sharp stabbing pains in the left yazidi, also developed some left arm heaviness yesterday which was persistent for hours. It has since resolved overnight. Her headaches have improved. At this point, I suspect that this is some variant of her migraine headac hes. My suspicious for any autonomic type headache is low. She had no real symptoms. Suspicion fo r aneurysm is low given her CTA findings. Suspicion for temporal arteritis is low. Normal ESR, CRP . No pain with palpation. Her arm pain has improved and is resolved. 1. No prophylactic treatment at this point for these headaches. I plan to see her back in two week s and if she continues to have them, we can discuss a prophylaxis. These are not chronic at this poi nt as she has only had several of them. 2. Left arm pain is most likely related to her significant neural foraminal narrowing on the MRI of the neck, although her pain was not specifically radicular in nature. Other considerations would b e an exacerbation of fibromyalgia. There is no evidence that this is related to underlying cerebrov ascular disease at this point. We will order some physical therapy for her as an outpatient. 3. I will see her soon as an outpatient. [id number]/[facility] #: [id number]
--- NOTE | 2017-05-11 10:56 | ECHO ---
Patient: SILVESTRE BARAJAS [facility] Rec#: [id number] : 1950 Date: 05/11/2017 Age: 66y Height: 162.6 cm / 64.0 in Weight: 74.8 kg / 164.9 lbs Sex: F BSA: 1.8 Room#: [facility] Admit Date#: 05/10/2017 Type: Inpatient Referring: Lali Bolton MD Reading: Brady Schwab DO Cardiac Nurse Specialist: Chuyita Sawyer RN RDCS CC: Shelby Velasquez MD Transthoracic Echocardiogram Indication: TIA BP: 143/69 HR: 75 Rhythm: NSR Findings History: HTN, HLD, breast cancer with bilateral mastectomy and breast reconstruction, chemotherapy, fibromyalgia Technical Comments: The study quality is fair. The study is technically limited due to poor apical windows. Completed at 0930. The study is technically limited due to patient body habitus. Left Ventricle: The left ventricular chamber size is normal. Mild concentric left ventricular hypertrophy is observed. Left ventricular systolic function is at the lower limits of normal. The estimated ejection fraction is 50-55%. There is an E to A reversal in the mitral valve flow pattern suggestive of diastolic dysfunction. Left Atrium: The left atrial chamber size is normal. Right Ventricle: The right ventricular cavity size is normal. The right ventricular global systolic function is normal. Right Atrium: The right atrial cavity size is normal. The bubble study is negative. A patent foramen ovale is not demonstrated with color Doppler and agitated contrast. Aortic Valve: The aortic valve is trileaflet. The aortic valve leaflets are mildly thickened. There is no evidence of aortic regurgitation. There is no evidence of aortic stenosis. Mitral Valve: The mitral valve leaflets are mildly thickened. There is a trace of mitral regurgitation. There is no evidence of mitral stenosis. Tricuspid Valve: The tricuspid valve leaflets are normal. There is trace tricuspid regurgitation. There is evidence of mild pulmonary hypertension. Pulmonic Valve: The pulmonic valve structure is not well visualized. Pericardium: There is no significant pericardial effusion. A pericardial fat pad is visualized. Aorta: The ascending aorta is not well visualized. There is no dilatation of the aortic arch. There is no dilation of the aortic root. Pulmonary Artery: The main pulmonary artery is not well visualized. Venous: The inferior vena cava appears normal in size. There is a greater than 50% respiratory change in the inferior vena cava dimension. Contrast: Normal saline was used as contrast for the bubble study. Images 1 and 2. Conclusions The left ventricular chamber size is normal. Mild concentric left ventricular hypertrophy is observed. Left ventricular systolic function is at the lower limits of normal. The estimated ejection fraction is 50-55%. No obvious segmental wall motion abnormalities noted on technically difficult imaging The left atrial chamber size is normal. The right ventricular cavity size is normal. The right ventricular global systolic function is normal. No significant valvular abnormalities noted. The bubble study is negative. There is evidence of mild pulmonary hypertension. Compared to prior study from 05/2010, mild pulmonary hypertension now noted, was not commented on previously. Measurements Name Value Normal Range RVDdMajor (2D) 3.2 cm (2.2 - 4.4) RVAW (2D) 0.8 cm (0.2 - 0.5) RAd ISD 4CH 3.5 cm (3.4 - 4.9) RA (A4C)W 3 cm (2.9 - 4.6) IVSd (2D) 1.1 cm (0.6 - 1) LVPWd (2D) 1.1 cm (0.6 - 1) LVIDd (2D) 3.8 cm (3.6 - 5.4) LVIDs (2D) 2.8 cm - LV FS (2D) 26 % (25 - 45) Aortic Annulus 1.7 cm (1.4 - 2.6) Ao root diameter (2D) 2.6 cm (2.1 - 3.5) Aortic arch 2.2 cm (1.8 - 3.4) LA dimension (AP) 2D 2.8 cm (2.3 - 3.8) LAd ISD 4CH 3.7 cm (2.9 - 5.3) LA ISD 4CH W 3.3 cm (2.5 - 4.5) Name Value Normal Range LA ESV SP 4CH (A/L) 28.2 ml - LA ESV SP 2CH (A/L) 31.2 ml - LA ESV BP (A/L) 30.6 ml - LA ESV BP (A/L) index 17 ml/m2 - LA ESV SP 4CH (MOD) 25.9 ml - LA ESV SP 2CH (MOD) 30.6 ml - Name Value Normal Range MV E-wave Vmax 0.72 m/sec - MV deceleration time 171 msec - MV A-wave Vmax 0.95 m/sec - MV E:A ratio 0.76 ratio - LV septal e' Vmax 0.07 m/sec - LV lateral e' Vmax 0.08 m/sec - LV E:e' septal ratio 10.3 ratio - LV E:e' lateral ratio 9 ratio - Name Value Normal Range AV Vmax 1.1 m/sec - AV VTI 25.6 cm - AV peak gradient 4.7 mmHg - AV mean gradient 3.2 mmHg - LVOT Vmax 1 m/sec - LVOT VTI 21.6 cm - LVOT peak gradient 4.2 mmHg - LVOT mean gradient 2.1 mmHg - CARLOS Vmax 0.69 m/sec - Name Value Normal Range TR Vmax 3 m/sec - TR peak gradient 36 mmHg - RAP 3 mmHg - RVSP 39 mmHg - IVC diameter 1.2 cm - Name Value Normal Range PV Vmax 0.68 m/sec -
[2017-05-11 11:46] VITALS: BP 125/71
--- NOTE | 2017-05-12 05:53 | DS ---
CC: Dr. Estrada; Dr. Velasquez DISCHARGE SUMMARY: DATE OF ADMISSION: 05/10/17 DATE OF DISCHARGE: 05/11/17 PRIMARY CARE PROVIDER: Dr. Velasquez. Also followed by Dr. Estrada from Neurology. DISCHARGE DIAGNOSIS: Left temporal headache associated with left upper extremity pain likely related to atypical migraine headache. SECONDARY DIAGNOSES: 1. History of breast cancer, status post bilateral mastectomy. 2. History of tinnitus. 3. History of hypertension. 4. Vitamin B12 deficiency. 5. Fibromyalgia. 6. Appendectomy. 7. Hysterectomy. 8. Tonsillectomy. MEDICATIONS AT DISCHARGE: Unchanged from admission and include; 1. Duloxetine DR 60 mg at bedtime and 30 mg daily. 2. Zetia 10 mg daily. 3. Pepcid 40 mg daily. 4. Folic acid 1 tablet daily. 5. Lisinopril with hydrochlorothiazide 10/12.5 mg 1 tablet daily. 6. Multivitamin 1 tablet daily. 7. Paroxetine 25 mg at bedtime. 8. Potassium chloride 20 mEq daily. 9. Pregabalin 75 mg b.i.d. LABORATORY DATA AND STUDIES: Performed during the hospital stay include: Vitamin B12 level was over 1450. Folate was 6.5. HDL was 58.5, LDL was 110, total cholesterol of 198 and triglycerides of 149. C-reactive protein was 2.58. Troponin of 0. The patient's ESR was 29. The patient's transthoracic echocardiogram performed on the day of discharge showed normal left ventricular size with EF of 50 to 55% with mild concentric LVH. There are no significant valvular abnormalities and bubble study was negative and evidence of mild pulmonary hypertension was noted. MRI of the C spine, impression: "Degenerative disk disease and osteoarthritis. There is mild narrowing of the central canal at C4-C5 and C5-C6. There is multilevel neuroforaminal narrowing as described above." Brain CT obtained on 05/10/17, impression: "No evidence of acute intracranial abnormality. Atrophy and findings suggestive of mild chronic small vessel ischemic changes." CTA of the head and neck obtained on 05/10/17, impression: "No internal carotid artery stenosis. No aneurysm, vascular malformation, occlusion or stenosis of the visualized intracranial circulation." Brain MRI obtained on 05/10/17, impression: "No restrictive diffusion to suggest acute infarct. There are multiple foci of elevated T2 FLAIR signal within the periventricular and subcortical white matter. While these findings are nonspecific, they can be seen in association with migraine headache as a typical of previous infection or inflammation and chronic small vessel ischemia. Demyelinating disease is also within the deferential. I discussed it is less likely in the absence of the appropriate clinical presentation. Moderate sinus mucosal inflammatory disease with an air fluid level in the sphenoid sinus. In the current clinical setting, this may represent acute sinusitis." CONSULTATIONS DURING THE HOSPITAL STAY: Included Dr. Estrada from Neurology. PHYSICAL EXAMINATION AT THE TIME OF DISCHARGE: Vitals Signs: Blood pressure 125/71, heart rate of 85 and regular, respiratory rate 18, oxygen saturation 96 % on room air, temperature 97.5. General: This is a very pleasant 66-year-old female who is in no acute distress. Alert, awake, and oriented x3. HEENT: Head is atraumatic, normocephalic. Eyes: Pupils equal and reactive to light and accommodation. Oropharynx clear. Mucosa moist. Neck: Supple. No JVD. No bruits bilaterally. Cardiovascular: Regular rate and rhythm. No murmurs. Respiratory: Clear to auscultation bilaterally. Abdomen: Soft, nontender. Bowel sounds present in all 4 quadrants. Extremities: There is no edema. Pulses +2 bilaterally. No clubbing or cyanosis. Neuro Evaluation: Speech clear. Cranial nerves II through XII grossly intact. Motor strength is 5/5 bilaterally. Sensation is grossly intact. RECOMMENDATIONS: At discharge, the patient was recommended to follow up with Dr. Estrada in approximately 2 weeks. The patient also recommended to follow up with the primary care provider, Dr. Velasquez in approximately a week. HOSPITALIZATION COURSE: Sanna Thao is a 66-year-old female with history of chronic medical conditions as mentioned above who presented to the hospital complaining of shooting left temporal headache that would last for minutes and resolve spontaneously for 2 days. She also had some tearing in the left eye. Also her left upper extremity felt "achy." The patient was placed on overnight observation to rule out TIA versus CVA. Dr. Estrada saw the patient in consultation. Recommended workup that included cervical spine MRI, brain MRI as well as CT angiogram of the head and neck. Echo with bubble study was also requested. All of the studies were as mentioned above and basically unremarkable. During the patient's hospital stay , the patient was on telemetry monitoring bed with no abnormalities noted. She remained in sinus rhythm throughout her hospital stay. Her headaches resolved during the hospital stay and although in the morning she had slight frontal headache due to caffeine withdrawal. She felt much better. Her left arm was not painful anymore. She is going to be discharged home with recommendations to follow up as above mentioned. [id number]/[facility] #: [id number] ARTEMIO
== END 2017-05-11 13:00 | disposition home or self-care (01) ==
LOC: ED 11:38 → MEDTELE 15:26
PROVIDERS: ADMIT Internal Medicine; ATTEND Internal Medicine
DX: G43.809 Other migraine, not intractable, without status migrainosus (principal); M79.602 Pain in left arm; M50.321 Other cervical disc degeneration at C4-C5 level; M99.81 Other biomechanical lesions of cervical region; M47.892 Other spondylosis, cervical region; I67.82 Cerebral ischemia; G31.89 Other specified degenerative diseases of nervous system; I10 Essential (primary) hypertension; E53.8 Deficiency of other specified B group vitamins; Z85.3 Personal history of malignant neoplasm of breast; M79.7 Fibromyalgia; Z79.899 Other long term (current) drug therapy
CPT/HCPCS: 36415; 70450; 70496; 70498; 70551; 72141; 80053; 80061; 81003; 81015; 82607; 82746; 83605; 84484; 85025; 85610; 85652; 86038; 86140; 87077; 87086; 93005; 93306; 94760; A9270-GY; G0378; J1644; Q9967